=== PATIENT | male | born 1970 | race Asian ===

== ENCOUNTER 2018-03-01 19:46 | Inpatient (IN) | payer SELFPAY ==
--- NOTE | 2018-03-01 20:29 | EDPHY ---
H & P Stated Complaint: dizzy, CANO, and not eating Time Seen by Provider: 03/01/18 20:05 HPI/ROS: CHIEF COMPLAINT: Confusion, headache HISTORY OF PRESENT ILLNESS: 48-year-old male presents with confusion and headache. 6 weeks ago he began making errors at work. 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 He stopped working 6 weeks ago. Since then, he has continued to be confused and has had intermittent headaches. Associated with decreased oral intake. urinary frequency and episodic dizziness. Went to the crisis center and was placed on an M1 hold for grave disability. No SI/HI or h/o mental illness. REVIEW OF SYSTEMS: complete 10 point ROS negative except at noted in the HPI - Personal History Current Tetanus/Diphtheria Vaccine: Unsure Current Tetanus Diphtheria and Acellular Pertussis (TDAP): Unsure - Medical/Surgical History Hx Asthma: No Hx Chronic Respiratory Disease: No Hx Diabetes: No Hx Cardiac Disease: No Hx Renal Disease: No Hx Cirrhosis: No Hx Alcoholism: No Hx HIV/AIDS: No Hx Splenectomy or Spleen Trauma: No Other PMH: denies - Social History Smoking Status: Never smoked Alcohol Use: None Drug Use: None - Physical Exam Exam: General Appearance: Alert, pleasant, confused at times Eyes: Pupils equal and round, no conjunctival pallor or injection ENT, Mouth: Mucous membranes moist Neck: Normal inspection Respiratory: Lungs are clear to auscultation Cardiovascular: Regular tachycardia Gastrointestinal: Abdomen is soft and nontender Neurological: Alert, oriented x3, motor and sensory intact, normal gait Skin: Warm and dry, no rash Extremities: Nontender, no pedal edema Psychiatric: Mood and affect normal Constitutional: Initial Vital Signs Temperature (C) 36.8 C 03/01/18 19:55 Heart Rate 116 H 03/01/18 19:55 Respiratory Rate 16 03/01/18 19:55 Blood Pressure 150/110 H 03/01/18 19:55 O2 Sat (%) 95 03/01/18 19:55 O2 Delivery Mode Room Air Allergies/Adverse Reactions: No Known Allergies Allergy (Unverified 03/01/18 20:02) Medical Decision Making - Diagnostics EKG Interpretation: EKG interpreted by me reveals sinus tachycardia, rate 113, LVH, borderline T- wave changes in inferior leads. Interpretation: Abnormal EKG Imaging Results: Imaging Impressions Head CT 03/01/18 19:54 Impression: 1. Bilateral cerebral and right cerebellar masses with surrounding vasogenic edema causing 0.8 cm left to right midline shift and herniation as described. Primary consideration is metastatic disease, MRI head with contrast recommended for further evaluation. 2. No intracranial hemorrhage. These findings were discussed with Dr. Hong by telephone at 8:34 PM on 03/01/2018 Imaging: Discussed imaging studies w/ call center representative Radiologist ED Course/Re-evaluation: This patient presents with headache, confusion and dizziness. Initial vital signs reveal hypertension and tachycardia. Neurologic exam is normal except for confusion. The M1 hold was lifted by me after initial patient evaluation. CT scan of the brain reveals multiple brain masses with edema and left to right shunt. Results discussed with the patient. No prior known history of cancer. Dr. Montoya was consulted and will see the patient in the hospital. Suggests Decadron 6 mg IV Q 6hr. Decadron 6 mg IV given. MRI of the brain ordered. The patient has urinary frequency so a Cooper catheter was inserted prior to MRI. Has urinated x 3 in the past hr, ?SIADH. The hospitalist service was consulted for admission. CT scan of the chest abdomen pelvis ordered. Differential Diagnosis: Altered mental status including but not limited to hypoglycemia, infectious process, electrolyte abnormality, head injury, CVA, and intoxicants. - Data Points Laboratory Results: Laboratory Results 03/01/18 20:00 03/01/18 20:00 03/01/18 03/01/18 03/01/18 20:00 20:00 20:00 WBC 13.17 10^3/uL H 10^3/uL (3.80-9.50) RBC 5.85 10^6/uL 10^6/uL (4.40-6.38) Hgb 17.7 g/dL H g/dL (13.7-17.5) Hct 51.4 % H % (40.0-51.0) MCV 87.9 fL fL (81.5-99.8) MCH 30.3 pg pg (27.9-34.1) MCHC 34.4 g/dL g/dL (32.4-36.7) RDW 11.9 % % (11.5-15.2) Plt Count 472 10^3/uL H 10^3/uL (150-400) MPV 9.0 fL fL (8.7-11.7) Neut % (Auto) 79.6 % H % (39.3-74.2) Lymph % (Auto) 9.7 % L % (15.0-45.0) [place] % (Auto) 8.4 % % (4.5-13.0) Eos % (Auto) 1.4 % % (0.6-7.6) Baso % (Auto) 0.5 % % (0.3-1.7) Nucleat RBC Rel Count 0.0 % % (0.0-0.2) Absolute Neuts (auto) 10.49 10^3/uL H 10^3/uL (1.70-6.50) Absolute Lymphs (auto) 1.28 10^3/uL 10^3/uL (1.00-3.00) Absolute Monos (auto) 1.10 10^3/uL H 10^3/uL (0.30-0.80) Absolute Eos (auto) 0.19 10^3/uL 10^3/uL (0.03-0.40) Absolute Basos (auto) 0.06 10^3/uL 10^3/uL (0.02-0.10) Absolute Nucleated RBC 0.00 10^3/uL 10^3/uL (0-0.01) Immature Gran % 0.4 % % (0.0-1.1) Immature Gran # 0.05 10^3/uL 10^3/uL (0.00-0.10) Sodium 139 mEq/L mEq/L (135-145) Potassium 4.1 mEq/L mEq/L (3.3-5.0) Chloride 97 mEq/L mEq/L (97-110) Carbon Dioxide 29 mEq/l mEq/l (22-31) Anion Gap 13 mEq/L mEq/L (8-16) BUN 13 mg/dL mg/dL (7-23) Creatinine 0.9 mg/dL mg/dL (0.7-1.3) Estimated GFR > 60 Glucose 124 mg/dL H mg/dL (70-100) Calcium 10.0 mg/dL mg/dL (8.5-10.4) Total Bilirubin 1.0 mg/dL mg/dL (0.1-1.4) Conjugated Bilirubin 0.2 mg/dL mg/dL (0.0-0.5) Unconjugated Bilirubin 0.8 mg/dL mg/dL (0.0-1.1) AST 25 IU/L IU/L (17-59) ALT 44 IU/L IU/L (21-72) Alkaline Phosphatase 164 IU/L H IU/L (38-126) Total Protein 8.2 g/dL g/dL (6.3-8.2) Albumin 4.1 g/dL g/dL (3.5-5.0) Lipase 95 IU/L IU/L (23-300) TSH 3.260 uIU/mL uIU/mL (0.465-4.680) Urine Color PALE YELLOW Urine Appearance CLEAR Urine pH 6.0 (5.0-7.5) Ur Specific [place] 1.002 (1.002-1.030) Urine Protein NEGATIVE (NEGATIVE) Urine Ketones NEGATIVE (NEGATIVE) Urine Blood NEGATIVE (NEGATIVE) Urine Nitrate NEGATIVE (NEGATIVE) Urine Bilirubin NEGATIVE (NEGATIVE) Urine Urobilinogen NEGATIVE EU EU (0.2-1.0) Ur Leukocyte Esterase NEGATIVE (NEGATIVE) Urine Glucose NEGATIVE (NEGATIVE) Urine Opiates Screen NEGATIVE (NEGATIVE) Urine Barbiturates NEGATIVE (NEGATIVE) Ur Phencyclidine Scrn NEGATIVE (NEGATIVE) Ur Amphetamine Screen NEGATIVE (NEGATIVE) U Benzodiazepines Scrn NEGATIVE (NEGATIVE) Urine Cocaine Screen NEGATIVE (NEGATIVE) U Marijuana (THC) Screen NEGATIVE (NEGATIVE) Ethyl Alcohol < 10 mg/dL mg/dL (0-10) Medications Given: Discontinued Medications Dexamethasone (Decadron Injection) 6 mg IVP EDNOW ONE Stop: 03/01/18 20:50 Last Admin: 03/01/18 22:04 Dose: 6 mg Sodium Chloride (Ns) 1,000 mls @ 0 mls/hr IV ONCE ONE; Wide Open PRN Reason: Protocol Stop: 03/01/18 20:31 Last Admin: 03/01/18 22:04 Dose: 1,000 mls Departure - Departure Disposition: [facility] Acute Clinical Impression: Brain tumor Condition: Serious
[2018-03-01 20:30] LABS: PLATELET COUNT 472 10^3/uL (150-400)
[2018-03-01] MEDS ORDERED: NS 1,000 ML IV ONE (20:30)
[2018-03-01] MEDS ORDERED: DEXAMETHASONE 4 MG/ML VIAL IVP ONE (20:49)
[2018-03-01] MEDS ORDERED: IOPAMIDOL (ISOVUE-300) 100 ML BTL ONE (21:05)
[2018-03-01] MEDS ORDERED: GADOBUTROL 10 ML VIAL IVP ONE (21:14)
--- NOTE | 2018-03-01 22:43 | CPEKG ---
Test Reason : OPEN Blood Pressure : / mmHG Vent. Rate : 113 BPM Atrial Rate : 113 BPM P-R Int : 135 ms QRS Dur : 082 ms QT Int : 329 ms P-R-T Axes : 061 070 -18 degrees QTc Int : 451 ms Sinus tachycardia Consider left ventricular hypertrophy Borderline T abnormalities, inferior leads Confirmed by Khloe Hong ([id number]) on 03/01/2018 10:42:40 PM Referred By: Confirmed By:Khloe Hong
[2018-03-01] MEDS ORDERED: ONDANSETRON 4 MG/2 ML VIAL IVP PRN (22:57)
[2018-03-01] MEDS ORDERED: NS 1,000 ML IV SCH (23:00)
--- NOTE | 2018-03-02 01:49 | PDGENHP ---
History and Physical - Chief Complaint Headache and confusion - History of Present Illness Patient seen on 03/01/2018 shortly after arrival on the med/surg floor. Source-patient provides history and appears reliable. Patient's primary language is Turkish and speaks Greenlandic quite well. Lifestyle Coordinator video was offered and patient initially declined pending result of jay CT studies. EMR was reviewed and case discussed with accepting hospitalist. HPI-this is a very pleasant 48-year-old gentleman with a history of gout who presents emergency department today with complaints of 6 weeks of progressive confusion and headaches. Patient notes that over the last several weeks he has been losing weight. He denies any trauma or injuries preceding the onset of his symptoms. He does note that over the last 6 weeks he has been having increasing confusion, lightheadedness and occasional falls without any loss of consciousness or head injury. 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 He denies any numbness or tingling in upper or lower extremities. He denies any focal deficits. He has had declining appetite. He has had intermittent nausea vomiting over the last 3 weeks and complaints of increasing symptoms with oral intake of high acid juices or high sugar content foods. He denies any hematemesis. No diarrhea. Denies any abdominal pain. No fevers or chills. Patient denies any acute changes in his vision. History Information - Allergies/Home Medication List Allergies/Adverse Reactions: No Known Allergies Allergy (Unverified 03/01/18 20:02) I have personally reviewed and updated: family history, medical history, social history, surgical history - Past Medical History Additional medical history: Gout. chronic polyuria since childhood - Surgical History Reports: no pertinent surgical hx (Patient denies any surgery history) - Family History Additional family history: Father-history of pancreatic cancer . Patient denies any chronic medical issues in the family members including HTN, dm 2 - Social History Smoking Status: Never smoked Alcohol Use: None Drug Use: None Additional social history: Patient is currently renting a room in a home. Cor status-full. Review of Systems Review of Systems: ROS: 10pt was reviewed & negative except for what was stated in HPI & below Physical Exam Physical Exam: Selected Entries 03/01/18 19:55 Blood Pressure Automatic Method Heart Rate 116 H Respiratory 16 Rate O2 Sat (%) 95 Temperature (C) 36.8 C Blood Pressure 150/110 H Mean Arterial 123 H Pressure (MAP) O2 Delivery Room Air Mode Temperature Oral Source Temp Pulse Resp BP Pulse Ox 36.6 C 118 H 16 145/102 H 88 L 03/02/18 00:18 03/02/18 00:18 03/02/18 00:18 03/02/18 00:18 03/02/18 00:18 Constitutional: no apparent distress, not in pain, other (NAD. Pleasant adult gentleman is lying comfortably in bed. Patient in fairly good spirits. A little bit anxious.) Eyes: PERRL, anicteric sclera, EOMI, No scleral injection Ears, Nose, Mouth, Throat: moist mucous membranes, No poor dentition (Feelings noted) Cardiovascular: regular rate and rhythym, tachycardia, No no murmur, rub, or gallop, No edema Peripheral Pulses: 2+: dorsalis-pedis (R), dorsalis-pedis (L) Respiratory: no respiratory distress, no rales or rhonchi, clear to auscultation , No expiratory wheeze, No respiratory distress Gastrointestinal: normoactive bowel sounds, soft, non-tender abdomen, no palpable masses, No distension Genitourinary: no bladder tenderness, huston in urethra Skin: warm, normal color, no rashes or abrasions, No rash Musculoskeletal: full muscle strength, no muscle tenderness, normal joint ROM, No generalized weakness Neurologic: AAOx3, sensation intact bilaterally, CN II-XII Intact, No facial droop Psychiatric: interacting appropriately, not encephalopathic, thought process linear, anxious, No suicidal ideation, No poor insight, No poor judgement, No poor memory Lab Data & Imaging Review 03/01/18 20:00 03/01/18 20:00 WBC 13.17 10^3/uL (3.80-9.50) H 03/01/18 20:00 RBC 5.85 10^6/uL (4.40-6.38) 03/01/18 20:00 Hgb 17.7 g/dL (13.7-17.5) H 03/01/18 20:00 Hct 51.4 % (40.0-51.0) H 03/01/18 20:00 MCV 87.9 fL (81.5-99.8) 03/01/18 20:00 MCH 30.3 pg (27.9-34.1) 03/01/18 20:00 MCHC 34.4 g/dL (32.4-36.7) 03/01/18 20:00 RDW 11.9 % (11.5-15.2) 03/01/18 20:00 Plt Count 472 10^3/uL (150-400) H 03/01/18 20:00 MPV 9.0 fL (8.7-11.7) 03/01/18 20:00 Neut % (Auto) 79.6 % (39.3-74.2) H 03/01/18 20:00 Lymph % (Auto) 9.7 % (15.0-45.0) L 03/01/18 20:00 [place] % (Auto) 8.4 % (4.5-13.0) 03/01/18 20:00 Eos % (Auto) 1.4 % (0.6-7.6) 03/01/18 20:00 Baso % (Auto) 0.5 % (0.3-1.7) 03/01/18 20:00 Nucleat RBC Rel Count 0.0 % (0.0-0.2) 03/01/18 20:00 Absolute Neuts (auto) 10.49 10^3/uL (1.70-6.50) H 03/01/18 20:00 Absolute Lymphs (auto) 1.28 10^3/uL (1.00-3.00) 03/01/18 20:00 Absolute Monos (auto) 1.10 10^3/uL (0.30-0.80) H 03/01/18 20:00 Absolute Eos (auto) 0.19 10^3/uL (0.03-0.40) 03/01/18 20:00 Absolute Basos (auto) 0.06 10^3/uL (0.02-0.10) 03/01/18 20:00 Absolute Nucleated RBC 0.00 10^3/uL (0-0.01) 03/01/18 20:00 Immature Gran % 0.4 % (0.0-1.1) 03/01/18 20:00 Immature Gran # 0.05 10^3/uL (0.00-0.10) 03/01/18 20:00 Sodium 139 mEq/L (135-145) 03/01/18 20:00 Potassium 4.1 mEq/L (3.3-5.0) 03/01/18 20:00 Chloride 97 mEq/L (97-110) 03/01/18 20:00 Carbon Dioxide 29 mEq/l (22-31) 03/01/18 20:00 Anion Gap 13 mEq/L (8-16) 03/01/18 20:00 BUN 13 mg/dL (7-23) 03/01/18 20:00 Creatinine 0.9 mg/dL (0.7-1.3) 03/01/18 20:00 Estimated GFR > 60 03/01/18 20:00 Glucose 124 mg/dL (70-100) H 03/01/18 20:00 Calcium 10.0 mg/dL (8.5-10.4) 03/01/18 20:00 Total Bilirubin 1.0 mg/dL (0.1-1.4) 03/01/18 20:00 Conjugated Bilirubin 0.2 mg/dL (0.0-0.5) 03/01/18 20:00 Unconjugated Bilirubin 0.8 mg/dL (0.0-1.1) 03/01/18 20:00 AST 25 IU/L (17-59) 03/01/18 20:00 ALT 44 IU/L (21-72) 03/01/18 20:00 Alkaline Phosphatase 164 IU/L (38-126) H 03/01/18 20:00 Total Protein 8.2 g/dL (6.3-8.2) 03/01/18 20:00 Albumin 4.1 g/dL (3.5-5.0) 03/01/18 20:00 Lipase 95 IU/L (23-300) 03/01/18 20:00 TSH 3.260 uIU/mL (0.465-4.680) 03/01/18 20:00 Urine Color PALE YELLOW 03/01/18 20:00 Urine Appearance CLEAR 03/01/18 20:00 Urine pH 6.0 (5.0-7.5) 03/01/18 20:00 Ur Specific [place] 1.002 (1.002-1.030) 03/01/18 20:00 Urine Protein NEGATIVE (NEGATIVE) 03/01/18 20:00 Urine Ketones NEGATIVE (NEGATIVE) 03/01/18 20:00 Urine Blood NEGATIVE (NEGATIVE) 03/01/18 20:00 Urine Nitrate NEGATIVE (NEGATIVE) 03/01/18 20:00 Urine Bilirubin NEGATIVE (NEGATIVE) 03/01/18 20:00 Urine Urobilinogen NEGATIVE EU (0.2-1.0) 03/01/18 20:00 Ur Leukocyte Esterase NEGATIVE (NEGATIVE) 03/01/18 20:00 Urine Glucose NEGATIVE (NEGATIVE) 03/01/18 20:00 Urine Opiates Screen NEGATIVE (NEGATIVE) 03/01/18 20:00 Urine Barbiturates NEGATIVE (NEGATIVE) 03/01/18 20:00 Ur Phencyclidine Scrn NEGATIVE (NEGATIVE) 03/01/18 20:00 Ur Amphetamine Screen NEGATIVE (NEGATIVE) 03/01/18 20:00 U Benzodiazepines Scrn NEGATIVE (NEGATIVE) 03/01/18 20:00 Urine Cocaine Screen NEGATIVE (NEGATIVE) 03/01/18 20:00 U Marijuana (THC) Screen NEGATIVE (NEGATIVE) 03/01/18 20:00 Ethyl Alcohol < 10 mg/dL (0-10) 03/01/18 20:00 Imaging Review: CT Head Without Contrast History: Confusion, headache, dizziness over prior 2 weeks Comparison: None available. Technique: Axial unenhanced images were obtained from the vertex through the skull base. Dose reduction techniques were utilized. Findings: Large areas of white matter hypodensity compatible with vasogenic edema are seen bilaterally, the largest region is in the left parietal-occipital lobe with similar-appearing regions in the right frontoparietal, temporal, and occipital regions. 2.3 cm left occipital soft tissue density parenchymal mass is seen on coronal image 5-59 as well as 1.1 cm right temporal mass on image 3-50 in addition to a 1.0 cm right parietal-occipital mass on image 3- 73 and coronal 6-39. There is also similar parenchymal hypodensity seen in the cerebellum on the right best seen on image 3-33. There is mass effect on the left lateral ventricle causing approximately 0.8 cm of left right midline shift and mild transtentorial downward herniation. There is also asymmetric dilatation of the left temporal horn may be secondary to mass effect/ obstruction. No intracranial hemorrhage is identified. No extraaxial fluid collections are identified. Punctate basal ganglia calcifications are seen. No destructive calvarial fractures are identified. Calcification of distorted external ear articular cartilage is seen which may be secondary to repetitive trauma. Mucous retention cyst or polyp is seen in the left maxillary sinus otherwise, the visible paranasal sinuses and mastoid air cells are normally aerated. Impression: 1. Bilateral cerebral and right cerebellar masses with surrounding vasogenic edema causing 0.8 cm left to right midline shift and herniation as described. Primary consideration is metastatic disease, MRI head with contrast recommended for further evaluation. 2. No intracranial hemorrhage. These findings were discussed with Dr. Hong by telephone at 8:34 PM on 2017 EKG additional interpertation: sinus tachycardia 110s. LVH. t wave inversion II and nonspecific t wave changes III. no acute ST elevations. QTc 451. Assessment & Plan Assessment: Pleasant 48-year-old gentleman with history of gout who presents with 6 weeks of confusion, headaches and lightheadedness #Brain tumor (Acute) - patient with multiple tumors on CT head. MRI and jay CT are pending. Concern for metastatic disease most likely vs. primary brain tumor. Patient with edema and shift and was started on Decadron in the emergency department which will be continued. Neurosurgery was consulted will see the patient in the morning. Patient reports that he is already feeling a little less cloudy in his thinking. He denies any focal deficits. Lightheadedness has resolved at this time. Differential was discussed with the patient and likely metastatic disease. I did ask the patient if upon return to review the reports and findings of the CT imaging and MRI if I could bring in the all terrain vehicle racer Ipad and patient was amenable. #headache - improved. Continue Decadron as noted above. P.r.n. Medications for pain control. Will try to avoid sedatives on due to patient's reported confusion. # leukocytosis - likely reactive in setting of patient's acute diagnoses versus S less likely infectious. Jay CT head pending. Patient is afebrile. # polycythemia - likely secondary to dehydration. Patient reports significantly declined oral intake and hydration secondary to poor appetite. FEN - patient will be made NPO after midnight pending CT jay CT for possible biopsy. Electrolyte monitoring replacement if needed. Patient will be started on some gentle IV fluid hydration overnight. PPX - SCDs. Holding anticoagulation pending study reports for possible procedure. Cor status-full. Disposition-patient admitted to inpatient status on the medical floor. Given severity of his illness additional inpatient workup is required and anticipate greater than 2 midnight stay.
[2018-03-02] MEDS: DEXAMETHASONE 4 MG/ML VIAL IVP SCH ×5 (01:52→23:55)
[2018-03-02 05:00] LABS: PLATELET COUNT 457 10^3/uL (150-400)
--- NOTE | 2018-03-02 08:36 | GCON ---
NEUROSURGERY CONSULTATION CHIEF COMPLAINT: Confusion. HPI: The patient is a 48-year-old male patient who was originally from [facility]. 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 He presented to the emergency room with 6 weeks of progressive confusion and headaches. The patient also noted that he has been losing weight. He den ied any trauma or injuries that brought on the symptoms. He has also had some increasing confusion a nd lightheadedness with occasional falls, but denies any loss of consciousness or head injury. He wa s admitted for further workup after a CT of the head demonstrated several brain lesions. He has unde rgone further metastatic workup including CT of the chest, abdomen, and pelvis and MRI of the brain. He has been found to have a left lung mass concerning for a primary source of the patient's metastat ic disease. Neurosurgery was subsequently consulted given the brain lesions. On examination this morning, the patient is resting in bed. I offered video translation to assist wi th his evaluation today, but the patient states he understands Italian quite well and thinks that fariha etimes the translation devices make things more confusing and declines translation. Resting in the b ed, patient states he is feeling overall okay this morning. He denies any headaches, nausea, vomitin g, new numbness or tingling or weakness in his arms or legs. ALLERGIES: The patient has no known drug allergies. PAST MEDICAL HISTORY: Gout, polyuria since childhood. SURGICAL HISTORY: Patient denies any past surgical history. FAMILY HISTORY: Father from pancreatic cancer. The patient denies any chronic medical i ssues in his family. SOCIAL HISTORY: Patient is a nonsmoker. He does not drink or use drugs. He is currently renting a room. REVIEW OF SYSTEMS: Please see above mentioned in the HPI. Otherwise negative. PHYSICAL EXAMINATION: VITAL SIGNS: Blood pressure 118/88, heart rate is 135, respirations 16, O2 sa t is 89% on 2 L of oxygen. Temperature is 36.9 Celsius. GENERAL: Well-developed, well-nourished ct ziyad patient in no acute distress. HEAD: Normocephalic and atraumatic. NEUROLOGIC: Cranial nerves 2- 12 are grossly intact. Motor examination of the bilateral upper extremities is 5/5 for deltoid, tric eps, biceps, and hand instructional support specialist and also 5/5 for bilateral lower extremities including hip flexion, flexi on and extension in the knee and plantar and dorsiflexion. LABORATORY: White blood cells 13.56, hemoglobin 17.1, hematocrit 49.4. RDW is 11.9. Platelet count is 457. Sodium is 146. Potassium is 4.6. Chloride is 109. Carbon dioxide is 25. Anion gap is 12 . BUN is 12. Creatinine 0.8. GFR greater than 60, glucose 162, calcium 10.1. Urinalysis is negati ve for protein, ketones, blood, nitrate, bilirubin, urobilinogen, and leukocyte esterase. Urine gluc ose is pale yellow. Appearance is clear. PH is 6.0. Toxicology screen is negative. IMAGING: CT of the head without contrast: Bilateral cerebral and right cerebellar masses with surro unding vasogenic edema causing 0.8 cm [id number] midline shift and herniation as described. Prima ry consideration is metastatic disease. MRI head with contrast recommended for further evaluation. No intracranial hemorrhage. Brain MRI with and without contrast impression: Innumerable intracrania l enhancing lesions compatible with metastasis. No significant change in the [id number] midline s hift/herniation. Largest enhancing mass measures 2.5 cm in the left occipital lobe. Abdomen CT left upper lobe lung mass suggestive of primary lung carcinoma differentiation of post obstructive pneumo keon/atelectasis is radiographically difficult. 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 Retroperitoneal adenopathy compatible with metastatic disease. No hepatic lesions. Pelvis : Enhancing left acetabular destructive mass compatible with metastatic disease. Non expansile gordo gn-appearing cyst osseous lesion in the intertrochanteric region of the left femur more suggestive of a benign bone cyst. IMPRESSION: This is a 48-year-old male patient with several brain lesions, a lung mass, and evidence of metastatic disease. PLAN: I have seen and examined the patient this morning. He is neurologically intact. I discussed with him that he is likely feeling better now that he has been placed on steroids thus is reducing so me of the swelling in his brain. I sat down and had a long conversation with the patient regarding t he findings of his MRI of the brain, and we reviewed the images together. I also reviewed with him t hat he does have lesions in his lymph nodes and he has evidence of metastatic disease. We discussed what this meant. I discussed with him that we will need to obtain some tissue to find out what type of tumor or cancer he has and that will guide his treatment options and prognosis. The patient expre ssed agreement and understanding of this. We also discussed that at this time, we would not plan any brain surgery for him given the large number of lesions there and also because the lung is a more ac cessible source. I discussed the patient with Dr. Sarah Montoya as well, and she will be in to meet w ith the patient later today. Neurosurgery will continue to follow along with this patient. Please c ontact the neurosurgery service for any additional questions or concerns. /[id number]
--- NOTE | 2018-03-02 09:50 | ASMTCMCOM ---
CM Note CM Note Notes: CM reviewed Pt's chart for D/C planning. Pt is a 48 y/o male who presented to the ED with c/o 6 weeks of confusion, lightheadedness, falls and headaches. Last few weeks losing weight. Intermittent nausea and vommiting last 3 weeks. Pt diagnosed with multiple tumors on head CT. Mass seen on lung and lesions in lymph nodes. Metastatic disease most likely. He is experiencing some symptom relief porobably due to steroids being taken now that he is here. Pt 's primary language is Malagasy; he speaks Maltese fluently, but agreed to an interpretor when medical findings presented. CM will follow. D/C Plan: TBD Date Signed: 03/02/2018 09:49 AM Electronically Signed By:Casi Arteaga
[2018-03-02] MEDS ORDERED: NALOXONE HCL 0.4 MG/ML INJ IVP PRN (15:00)
[2018-03-02] MEDS ORDERED: fentaNYL 100 MCG/2 ML INJ IVP PRN (15:00)
[2018-03-02] MEDS ORDERED: NS 1,000 ML IV SCH (15:00)
[2018-03-02] MEDS ORDERED: FLUMAZENIL 0.5 MG/5 ML MDV IVP PRN (15:00)
[2018-03-02] MEDS ORDERED: MIDAZOLAM 2 MG/2 ML VIAL IVP PRN (15:00)
--- NOTE | 2018-03-02 15:33 | HOSPPROG ---
Hospitalist Progress Note Assessment/Plan: #Metastatic cancer #Brain Mets, no indication for brain surgery #EVELIA mass #Acute Encephalopathy, stable #Headache, improving #Leukocytosis #Tachycardia Imaging reviewed Primary unclear CT guided biopsy of left Acetabulum per IR will consult Onc OK for Regular diet once procedure done Subjective: still confused. no CANO. No SOB. thirsty Objective: Vital Signs Temp Pulse Resp BP Pulse Ox 37.3 C 131 H 18 132/93 H 90 L 03/02/18 11:23 03/02/18 11:23 03/02/18 11:23 03/02/18 11:23 03/02/18 11:23 Laboratory Results 03/02/18 04:28 03/02/18 04:28 03/01/18 03/02/18 03/03/18 05:59 05:59 05:59 Intake Total 1500 342 Output Total 2600 725 Balance -1100 -383 - Physical Exam Constitutional: no apparent distress Eyes: PERRL Ears, Nose, Mouth, Throat: moist mucous membranes, hearing normal Cardiovascular: regular rate and rhythym Respiratory: no respiratory distress, no rales or rhonchi, clear to auscultation Gastrointestinal: normoactive bowel sounds, soft, non-tender abdomen Skin: warm Neurologic: AAOx3 Psychiatric: interacting appropriately, not anxious Lymph, Heme, Immunologic: No petechiae ICD10 Worksheet Patient Problems: Problems Problem Status Onset Brain tumor Acute
[2018-03-02 15:41] LABS: INR 1.11 (0.83-1.16); PROTIME(PATIENT) 14.5 SEC (12.0-15.0)
--- NOTE | 2018-03-02 15:41 | PDMN ---
Medical Necessity Medical necessity: Pt meets inpt criteria per MD order and Neurology GRG. 48 y/ o presents w/ongoing headaches, confusion and light headedness w/new diagnosis acute brain tumor, CT head shows multiple tumors, edema, and shift, also chest CT reveals L lung mass as well as mediastianl, retroperitoneal abd lymph node involvement. Leukocytosis, polycythemia, tachycardia w/HR 130's. Neurosurg consult, anticipate >2MN due to severity of illness and further workup required.
[2018-03-02] MEDS ORDERED: MIDAZOLAM 2 MG/2 ML VIAL ONE (16:14)
[2018-03-02] MEDS ORDERED: fentaNYL 100 MCG/2 ML INJ ONE (16:14)
--- NOTE | 2018-03-02 17:18 | PDRADPN ---
Radiology Procedure Note Date of Procedure: 03/02/18 Radiologist: Richard Loco Anesthesia: IV Sedation Pre-op Diagnosis: left acetabular mass Post-op Diagnosis: same Procedure: CT-guided biopsy Inf/Abcess present in the surg proc area at time of surgery?: No
--- NOTE | 2018-03-02 17:18 | PDPROPOC ---
Sedation Plan of Care ASA Classification: ASA 2 Mallampati Score: Class 2 Mallampati Reference Image:
[2018-03-02] MEDS: ACETAMINOPHEN 325 MG TAB PO PRN (19:42)
[2018-03-03 05:59] LABS: PLATELET COUNT 436 10^3/uL (150-400)
[2018-03-03] MEDS: DEXAMETHASONE 4 MG/ML VIAL IVP SCH ×5 (06:02→18:15)
[2018-03-03] MEDS: ACETAMINOPHEN 325 MG TAB PO PRN ×2 (06:04→10:28)
[2018-03-03] MEDS ORDERED: DEXAMETHASONE 4 MG/ML VIAL IVP SCH (13:11)
[2018-03-03] MEDS ORDERED: D50W 25 GM/50 ML VIAL IVP PRN (13:15)
--- NOTE | 2018-03-03 13:15 | HOSPPROG ---
Hospitalist Progress Note Assessment/Plan: #Metastatic cancer #Brain Mets, no indication for brain surgery -On Dexamethasone -Will decrease dose today and taper #EVELIA mass #Left Acetabular Mass #Acute Encephalopathy, improving #Headache, improving #Leukocytosis #Tachycardia #steroid induced hyperglycemia Plan: mentation is better Onc will see today will decrease Dexamethasone today start ISS, check A1C PT/OT Subjective: CANO is better. congnition is improving. denies pain Objective: Vital Signs Temp Pulse Resp BP Pulse Ox 36.5 C 119 H 14 111/87 H 88 L 03/03/18 12:00 03/03/18 12:00 03/03/18 12:00 03/03/18 12:00 03/03/18 12:00 Laboratory Results 03/03/18 04:45 03/03/18 04:45 03/02/18 03/03/18 03/04/18 05:59 05:59 05:59 Intake Total 1500 3342 Output Total 2600 3795 1100 Balance -1100 -453 -1100 PT 14.5 SEC (12.0-15.0) 03/02/18 15:20 INR 1.11 (0.83-1.16) 03/02/18 15:20 - Physical Exam Constitutional: no apparent distress Eyes: PERRL Ears, Nose, Mouth, Throat: moist mucous membranes, hearing normal Cardiovascular: regular rate and rhythym Respiratory: no respiratory distress, no rales or rhonchi, clear to auscultation Gastrointestinal: normoactive bowel sounds, soft, non-tender abdomen Skin: warm Neurologic: AAOx3 Psychiatric: interacting appropriately, not anxious, encephalopathic (somewhat confused) Lymph, Heme, Immunologic: No petechiae ICD10 Worksheet Patient Problems: Problems Problem Status Onset Brain tumor Acute
--- NOTE | 2018-03-03 15:07 | GCON ---
DATE OF CONSULTATION: 03/03/2018 REASON FOR CONSULTATION: Metastatic malignancy. HISTORY OF PRESENT ILLNESS: Patient is a pleasant 48-year-old gentleman who presented to the [facility] with chief complaint of headache and confusion. 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 He noted some short-term memory difficulties. 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 He felt generally "clumsy." When his symp toms began to worsen, he presented to the emergency department. A CT of the head revealed multiple s uspicious lesions. A subsequent MRI of the brain revealed innumerable intracranial enhancing lesions compatible with metastasis. There was mild left to right midline shift. The patient was seen by Neurosurgery. He was started on IV steroid treatment with improvement in his symptoms. He underwent a staging CT chest, abdomen, which revealed a left upper lobe mass extending from the hilum measuring 3.7 cm in greatest dimension with surrounding atelectasis. Several other m asses were seen in the left upper lobe, largest measuring 1.8 cm. The heart size was normal. There was mediastinal adenopathy. The patient was noted to have a cluster of enlarged nodes just superior to the stomach. The largest measuring 1.7 cm in greatest dimension. Multiple retroperitoneal nodes were noted as well. The patient was noted to have a 5.3 cm enhancing mass in the left acetabulum wit h destruction of the cortex. The patient denies left hip pain. He denies odynophagia or dysphagia. He denies epigastric pain. H e does report a poor appetite with an unspecified amount of weight loss. Throughout his hospital stay, he has had intermittent sinus tachycardia and is currently on a monitor . The patient underwent a CT-guided biopsy of his acetabular mass yesterday. Pathology is currently pe nding. PAST MEDICAL HISTORY: 1. Gout. 2. History of chronic polyuria since childhood. PAST SURGICAL HISTORY: None. FAMILY HISTORY: Patient reports his father of pancreatic cancer in his 60s. He denies any othe r known family history of malignancy. SOCIAL HISTORY: The patient is originally from [place]. He has lived in the [place] since 1999. 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 He is a lifelong nonsmoker. He does not use alcohol. He is singl e. REVIEW OF SYSTEMS: As outlined above. PHYSICAL EXAM: GENERAL: The patient is resting comfortably in bed. He is in no acute distress. HE ENT: Pupils are equal. Sclerae nonicteric. No palpable cervical or supraclavicular adenopathy. HE ART: Regular without murmur. LUNGS: Mild bibasilar crackles but are otherwise clear. No wheezes, rhonchi. No flank tenderness. ABDOMEN: Soft, nontender, nondistended. There is specifically no ep igastric tenderness or mass. EXTREMITIES: No extremity swelling or edema. SKIN: No visible skin r dimitri. PSYCH: Patient is alert, oriented, and appropriate. His gait appears normal. His speech is f luent. IMAGING STUDIES: As outlined above. LABORATORY STUDIES: Sodium 146, potassium 4.1, chloride 112, bicarb 22, BUN 24, creatinine 0.8, calc ium 9.2. White count 24.8, hemoglobin 15.1, hematocrit 44.4, platelet count is 436,000. IMPRESSION: 1. Metastatic malignancy. 2. Multiple intracranial brain metastasis. 3. History of pancreatic cancer in patient's father. Patient is a pleasant 48-year-old gentleman who presents to the hospital with evidence of a metastati c malignancy. He has undergone a CT-guided biopsy of a left acetabular mass, and the pathology is cu rrently pending. I discussed his imaging findings with him in detail. I shared the concern for metastatic malignancy. In this patient with a family history of pancreatic cancer, who is a nonsmoker and who has regional l ymph nodes in the epigastric area, I suspect the patient may have an occult gastric cancer. The kathya ent does not have any upper GI symptoms currently, but I certainly believe he would benefit from even tual upper endoscopy if his biopsy confirms an adenocarcinoma. This could be done early next week wh ile he is in the hospital. He has persistent tachycardia. He has no clear pericardial effusion on his CT. However, I think yojana luation with an echocardiogram is warranted, and I have ordered this. He is doing better from a neurologic standpoint since being started on IV dexamethasone, which will b e continued. Once his diagnosis is known, if the biopsy confirms solid tumor, I would favor initial treatment with palliative whole-brain radiation therapy, which could be initiated during this hospital stay. The patient had multiple questions regarding his prognosis, which are somewhat difficult to answer gi petty the lack of diagnosis currently. I did indicate to him that the finding of diffuse brain metasta sis generally carries a poor prognosis and that in general, a malignancy with diffuse brain metastasi s would not be considered curable. Our service will continue to follow him and will plan on meeting with him again to discuss further st eps and treatment options once his pathology has been resulted. The care plan was discussed with nursing. The patient's questions were answered. Total time for today's visit was approximately 65 minutes of which greater than 50% was spent in coun seling and care coordination. /[id number]/MODL
[2018-03-03] MEDS ORDERED: BISACODYL 10 MG SUPP PR PRN (15:56)
[2018-03-03] MEDS ORDERED: LACTULOSE 20 GM/30 ML UDCUP PO PRN (15:56)
[2018-03-03] MEDS ORDERED: MAGNESIUM HYDROXIDE 30 ML UDCUP PO PRN (15:56)
[2018-03-03] MEDS ORDERED: POLYETHYLENE GLYCOL 3350 17 GM PKT PO PRN (15:56)
[2018-03-03] MEDS: INSULIN LISPRO 100 UNIT/ML SC SCH (18:15)
[2018-03-03] MEDS: SENNOSIDES/DOCUSATE SODIUM TAB PO SCH (21:23)
[2018-03-04] MEDS: DEXAMETHASONE 4 MG/ML VIAL IVP SCH ×4 (00:22→22:27)
[2018-03-04] MEDS: SENNOSIDES/DOCUSATE SODIUM TAB PO SCH ×2 (08:50→20:25)
[2018-03-04] MEDS: INSULIN LISPRO 100 UNIT/ML SC SCH ×3 (08:51→17:22)
--- NOTE | 2018-03-04 09:56 | ASMTLACE ---
LACE Length of stay for Answers: 2 days current admission Acuity / Level of Answers: Yes Care: Did the patient have an inpatient admission? Comorbidities - select Answers: Any tumor (including all that apply lymphoma or leukemia) # of Emergency department Answers: 1-2 visits in the last 6 months Score: 8 Date Signed: 03/04/2018 09:56 AM Electronically Signed By:Carmelita Adames RN
--- NOTE | 2018-03-04 11:05 | HOSPPROG ---
Hospitalist Progress Note Assessment/Plan: #Metastatic cancer #Brain Mets, edema, headache -no indication for brain surgery -On Dexamethasone -further taper today -CANO and cognition are improving #EVELIA mass #Left Acetabular Mass #Acute Encephalopathy, improving #Leukocytosis, steroid induced #Tachycardia appears to have resolved today -TTE is pending for evaluation for pericardial effusion -on Lovenox proph -If tachycardia persists, may need to obtain CTA of the chest r/o P.E. #Hypoxemia, likely due to EVELIA mass. no e/o infection. not symptomatic this morning. on 2L o2. no cough. afebrile. no cp #steroid induced hyperglycemia #steroid induce insomnia Plan: Await Echo If tachycardia persists, consider CTA chest cont Lovenox Decrease Steroids today Await Cytology Start Melatonin Onc is following ISS, await A1C PT/OT Cont inpatient Subjective: no cp or sob. feels "good". confusion is better. still with CANO but better. Having a hard time sleeping Objective: Vital Signs Temp Pulse Resp BP Pulse Ox 36.4 C 100 16 114/85 H 97 03/04/18 07:53 03/04/18 07:53 03/04/18 07:53 03/04/18 07:53 03/04/18 07:53 Laboratory Results 03/03/18 04:45 03/03/18 04:45 03/03/18 03/04/18 03/05/18 05:59 05:59 05:59 Intake Total 3342 7300 500 Output Total 3795 6575 1000 Balance -453 725 -500 PT 14.5 SEC (12.0-15.0) 03/02/18 15:20 INR 1.11 (0.83-1.16) 03/02/18 15:20 - Physical Exam Constitutional: no apparent distress Eyes: PERRL Ears, Nose, Mouth, Throat: moist mucous membranes, hearing normal Cardiovascular: regular rate and rhythym Respiratory: no respiratory distress, no rales or rhonchi Gastrointestinal: normoactive bowel sounds, soft, non-tender abdomen Skin: warm Neurologic: AAOx3 Psychiatric: interacting appropriately, not anxious, not encephalopathic ICD10 Worksheet Patient Problems: Problems Problem Status Onset Brain tumor Acute
[2018-03-04] MEDS: ENOXAPARIN 40 MG/0.4 ML SYR SC SCH (12:41)
--- NOTE | 2018-03-04 14:46 | ECHO ---
[email or web address] [place] [id number] Main: [phone] Fax: Transthoracic Echocardiogram Name: MICHAEL METZGER MR#: [id number] Study Date: 03/04/2018 Study Time: 10:45 AM Date of : 1970 Age: 48 year(s) Height: 160 cm (63 in.) Weight: 61.24 kg (135 lb.) BSA: 1.64 m2 Gender: Male Examination: Limited Echo Indication: New Metastatic malignancy; eval for pericardial effusion and LVEF Image Quality: Adequate Contrast: Requested by: Karmen Kendall BP: 115 mmHg/85 mmHg Heart Rate: Rhythm: Indication: New Metastatic malignancy; eval for pericardial effusion and LVEF Procedure Staff Rod Buster: Inga Dhillon [facility] Reading Physician: Keshav Quijano MD Requesting Provider: Conclusions: Normal size left ventricle. No LV hypertrophy. Normal global systolic LV function. EF is 69 %. No regional wall motion abnormality. Normal RV function. No pericardial effusion. Measurements: Chambers Valvular Assessment AV/MV Valvular Assessment TV/PV Normal Normal Normal Name Value Range Name Value Range Name Value Range IVSd (2D): 0.9 cm (0.6 cm-1.1 cm) LVDd (2D): 4.1 cm (4.2 cm-5.9 cm) LVDs (2D): 2.2 cm (2.1 cm-4 cm) LVPWd (2D): 0.7 cm (0.6 cm-1 cm) LVEF (BP): 69 % (>=55 %) Continued Measurements: Findings: Left Ventricle: Normal size left ventricle. No LV hypertrophy. Normal global systolic LV function. EF is 69 %. No regional wall motion abnormality. Right Ventricle: Patient: MICHAEL METZGER Study Date: 03/04/2018 Page 1 of 2 10:45 AM Normal RV function. Pericardium: No pericardial effusion. (No Signature Object) Patient: MICHAEL METZGER Study Date: 03/04/2018 Page 2 of 2 10:45 AM [id number]
[2018-03-04] MEDS: MELATONIN 3 MG TAB PO SCH (20:27)
[2018-03-04] MEDS: HYDROCODONE/APAP 5/325 TAB PO PRN (20:40)
[2018-03-05 05:20] LABS: PLATELET COUNT 347 10^3/uL (150-400)
[2018-03-05] MEDS: DEXAMETHASONE 4 MG/ML VIAL IVP SCH ×3 (06:37→21:45)
[2018-03-05] MEDS: INSULIN LISPRO 100 UNIT/ML SC SCH ×3 (10:16→18:12)
[2018-03-05] MEDS: ENOXAPARIN 40 MG/0.4 ML SYR SC SCH (10:17)
--- NOTE | 2018-03-05 10:22 | HOSPPROG ---
Hospitalist Progress Note Assessment/Plan: #Metastatic lung cancer with brain mets - no indication for brain surgery. Headache and cognition improving. -Cont Dexamethasone, tapering -per onc notes, may be candidate for whole brain radiation while inpt. Discussed with Dr. Sim. 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 No e/o infection. #Tachycardia - improving, no hypoxemia or pleuritic symptoms -TTE neg for pericardial effusion -consider CTA if not resolving #Hypoxemia, likely due to EVELIA mass. no e/o infection, asymptomatic, seems resolved today -sats >90% on room air #Hyperglycemia - possibly steroid induced, bg's 200's-300's -check a1c -add basal insulin, lantus 10 u hs -cont SSI #steroid induced insomnia #dvt pplx - lovenox Full code Dispo - cont inpt, likely d/c tomorrow once oncology plans solidified. pt wants to return to [facility]. Subjective: Pt doing better. Headache improved. Still feels a little fuzzy in the head. No fevers/chills. Denies CP, SOB or cough. No pleuritic symptoms. Objective: Vital Signs Temp Pulse Resp BP Pulse Ox 36.6 C 93 15 119/92 H 92 03/05/18 07:34 03/05/18 07:34 03/05/18 07:34 03/05/18 07:34 03/05/18 07:34 Laboratory Results 03/05/18 04:24 03/05/18 04:24 03/04/18 03/05/18 03/06/18 05:59 05:59 05:59 Intake Total 7300 6500 1580 Output Total 6575 5700 1200 Balance 725 800 380 PT 14.5 SEC (12.0-15.0) 03/02/18 15:20 INR 1.11 (0.83-1.16) 03/02/18 15:20 - Physical Exam Constitutional: no apparent distress Eyes: PERRL Ears, Nose, Mouth, Throat: moist mucous membranes Cardiovascular: regular rate and rhythym, no murmur, rub, or gallop Respiratory: no respiratory distress, clear to auscultation Gastrointestinal: normoactive bowel sounds, soft, non-tender abdomen Skin: warm Musculoskeletal: full muscle strength Neurologic: AAOx3 Psychiatric: interacting appropriately ICD10 Worksheet Patient Problems: Problems Problem Status Onset Brain tumor Acute
[2018-03-05] MEDS: SENNOSIDES/DOCUSATE SODIUM TAB PO SCH ×2 (10:23→22:45)
--- NOTE | 2018-03-05 15:29 | ASMTCMCOM ---
CM Note CM Note Notes: Patient seen in rounds this am. Pathology still pending. 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 Call to rn employee health to request help. Patient is anxious to discharge to home so he can travel to [facility] and be with family. We will need to compile his records for discharge. No needs at this time for [facility]. Plan: To dc home independently when medically cleared for discharge. Date Signed: 03/05/2018 03:29 PM Electronically Signed By:Carmelita Adames RN
--- NOTE | 2018-03-05 18:34 | SOAPPROG ---
SOAP Progress Note Assessment/Plan: Assessment/Plan: Patient is a 48-year-old male with recently diagnosed metastatic lung carcinoma after presenting with symptomatic intracerebral metastasis for which oncology was consulted regarding free future recommendations. Problem #1 - Metastatic adenocarcinoma, pulmonary origin Malignancy is consistent with adenocarcinoma CK 7 and TTF-1 positive consistent with a lung primary. Given that the patient is is a lifetime non-smoker there is a high probability that this has an actionable mutation and thus he does not require whole brain radiotherapy but can start with TKI therapy such as osimertinib which has good CLINIC MD ASSOCIATE penetration. This would likely have a large impact on his quality of life given the severe decrements of same with whole brain radiation. Currently patient's CLINIC MD ASSOCIATE symptoms are well controlled on dexamethasone, recommend continuing this. We will work on having the patient get by [employer] peripheral blood testing for mutations. Problem #2-metastatic lung carcinoma to the brain -symptomatic Patient presented with symptomatic CLINIC MD ASSOCIATE involvement found to have innumerable CLINIC MD ASSOCIATE intraparenchymal metastasis. Patient is currently asymptomatic and completely neurologically intact intact on dexamethasone. Will treat as above. Continue dexamethasone in the meantime. Dhiraj Sim 03/05/18 18:29 03/05/18 18:39 Subjective: Patient reports feeling well he denies any fevers chills or drenching night sweats he denies any focal weakness difficulties with thinking or ambulation. He denies any paresthesias. Objective: Vital Signs Temp Pulse Resp BP Pulse Ox 36.7 C 115 H 15 120/84 H 92 03/05/18 16:00 03/05/18 16:00 03/05/18 16:00 03/05/18 16:00 03/05/18 16:00 Laboratory Results 03/05/18 04:24 03/05/18 04:24 03/04/18 03/05/18 03/06/18 05:59 05:59 05:59 Intake Total 7300 6500 3580 Output Total 6575 5700 3350 Balance 725 800 230 PT 14.5 SEC (12.0-15.0) 03/02/18 15:20 INR 1.11 (0.83-1.16) 03/02/18 15:20 Physical examination: General: No acute distress appearing male who appears younger than stated age nontoxic appearing HEENT: Pupils equal round reactive to light no scleral icterus or conjunctival pallor is appreciated oral mucosa is moist on the evidence of oral pharyngeal lesions Neck: Supple without evidence of adenopathy Cardiovascular: Regular rate and rhythm without rubs thrills gallops or murmur Chest: Clear to auscultation percussion bilateral posterior lungs Extremities: Warm well perfused 2+ dorsalis pedis and radial pulses bilaterally no lower extremity edema Neurologic: Cranial nerves II through XII are intact 5 out of 5 upper and lower extremity strength bilaterally normal mentation and normal gaitn ICD10 Worksheet Patient Problems: Problems Problem Status Onset Brain tumor Acute
[2018-03-05] MEDS: MELATONIN 3 MG TAB PO SCH (21:45)
[2018-03-05] MEDS: INSULIN GLARGINE 100 UNITS/ML UNIT SC SCH (21:45)
[2018-03-05] MEDS: HYDROCODONE/APAP 5/325 TAB PO PRN (22:47)
[2018-03-06] MEDS: DEXAMETHASONE 4 MG/ML VIAL IVP SCH ×2 (04:51→20:51)
--- NOTE | 2018-03-06 09:29 | HOSPPROG ---
Hospitalist Progress Note Assessment/Plan: #Metastatic lung adenocarcinoma: with brain mets. Cont dex -poor prognosis if not treated. Pt want to return to [facility] with family though Oncology rec stabilization prior #AHRF: resolved. From lung mass #Leukocytosis: steroids, afebrile #Acute encephalopathy: improved, from brain mets #Steroid-induced hyperglycemia: SSI #Tachycardia: echo without pericardial effusion. Resolved #Diet: regular #DVt ppx: Lovenox #Disp: cont inpatient admission for IV steroids. Will DC in morning with friend Subjective: thirsty all the time Objective: Vital Signs Temp Pulse Resp BP Pulse Ox 36.4 C 80 14 123/101 H 92 03/06/18 07:20 03/06/18 07:20 03/06/18 07:20 03/06/18 07:20 03/06/18 07:20 Laboratory Results 03/05/18 04:24 03/05/18 04:24 03/05/18 03/06/18 03/07/18 05:59 05:59 05:59 Intake Total 6500 5880 Output Total 5700 6650 850 Balance 800 -770 -850 PT 14.5 SEC (12.0-15.0) 03/02/18 15:20 INR 1.11 (0.83-1.16) 03/02/18 15:20 - Time Spent With Patient Time Spent with Patient: greater than 35 minutes Time Spent with Patient: Greater than 35 minutes spent on this patients care, greater than 50% of time spent counseling, educating, and coordinating care regarding the above mentioned plan. - Physical Exam Constitutional: no apparent distress Eyes: PERRL Ears, Nose, Mouth, Throat: moist mucous membranes Cardiovascular: regular rate and rhythym Respiratory: no respiratory distress Gastrointestinal: normoactive bowel sounds Genitourinary: no bladder fullness Skin: warm Musculoskeletal: full muscle strength Neurologic: AAOx3, CN II-XII Intact Psychiatric: interacting appropriately ICD10 Worksheet Patient Problems: Problems Problem Status Onset Brain tumor Acute
--- NOTE | 2018-03-06 09:46 | ASMTCMCOM ---
CM Note CM Note Notes: Patient discharge planning continues. He is planning on flying to [place] when he gets discharged and has a Mauritian speaking friend to accompany him. He will need a copy of his medical records as well as CD images from testing. No current needs identified from CM perspective. CM to follow. Plan: To dc indenpendently with community support. Date Signed: 03/06/2018 09:46 AM Electronically Signed By:Carmelita Adames RN
[2018-03-06] MEDS: ENOXAPARIN 40 MG/0.4 ML SYR SC SCH (10:00)
[2018-03-06] MEDS: INSULIN LISPRO 100 UNIT/ML SC SCH ×3 (10:05→17:28)
[2018-03-06] MEDS: SENNOSIDES/DOCUSATE SODIUM TAB PO SCH ×2 (10:05→21:16)
--- NOTE | 2018-03-06 13:24 | ASMTCMCOM ---
CM Note CM Note Notes: Patient seen during interdisciplinary rounds and plan of care reviewed. He will remain on IV steroids today but tapering dose and be switched to oral steroids tomorrow with likely discharge. Records being compiled as he intends to travel home to [facility] and seek treatment there. No other needs identified. Plan: Dc independently. Date Signed: 03/06/2018 01:23 PM Electronically Signed By:Carmelita Adames RN
--- NOTE | 2018-03-06 16:34 | SOAPPROG ---
SOAP Progress Note Assessment/Plan: Assessment/Plan: Patient is a 48-year-old male with recently diagnosed metastatic lung carcinoma after presenting with symptomatic intracerebral metastasis for which oncology was consulted regarding free future recommendations. Problem #1 - Metastatic adenocarcinoma, pulmonary origin Malignancy is consistent with adenocarcinoma CK 7 and TTF-1 positive consistent with a lung primary. Given that the patient is is a lifetime non-smoker there is a high probability that this has an actionable mutation and thus he does not require whole brain radiotherapy but can start with TKI therapy such as osimertinib which has good PHOTOENGRAVING HELPER penetration. This would likely have a large impact on his quality of life given the severe decrements of same with whole brain radiation. Currently patient's PHOTOENGRAVING HELPER symptoms are well controlled on dexamethasone -discussed prognosis of cancer both treated and untreated -discussed plan, which would include sending tumor for ROS1, EGFR, ALK and BRAF. Results should be available next week. If no actionable mutations, would likely start with carboplatin/pemetrexed and pembrolizumab. Would like to avoid WBRT. If actionable mutation would start with targeted therapy. -He has discussed desire to return to [place], which I warned was risky but understand that's where his family is. 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 Patient is currently asymptomatic and completely neurologically intact intact on dexamethasone. Will treat as above. -Continue dexamethasone 4mg BID in the meantime. Dhiraj Sim Subjective: Patient reports feeling well he has no new complaints. He has increased thirst and urination on the dexamethasone. Otherwise he denies fevers chills or drenching night sweats he denies any new PHOTOENGRAVING HELPER symptoms. He denies any bleeding Objective: Vital Signs Temp Pulse Resp BP Pulse Ox 36.4 C 125 H 14 127/101 H 91 L 03/06/18 16:00 03/06/18 16:00 03/06/18 16:00 03/06/18 16:00 03/06/18 16:00 Laboratory Results 03/05/18 04:24 03/05/18 04:24 03/05/18 03/06/18 03/07/18 05:59 05:59 05:59 Intake Total 6500 5880 Output Total 5700 6650 1450 Balance 800 -770 -1450 PT 14.5 SEC (12.0-15.0) 03/02/18 15:20 INR 1.11 (0.83-1.16) 03/02/18 15:20 Physical examination: General: No acute distress appearing male who appears younger than stated age nontoxic appearing HEENT: Pupils equal round reactive to light no scleral icterus or conjunctival pallor is appreciated oral mucosa is moist on the evidence of oral pharyngeal lesions Neck: Supple without evidence of adenopathy Cardiovascular: Regular rate and rhythm without rubs thrills gallops or murmur Chest: Clear to auscultation percussion bilateral posterior lungs Extremities: Warm well perfused 2+ dorsalis pedis and radial pulses bilaterally no lower extremity edema Neurologic: Cranial nerves II through XII are intact, normal gait, high frequency tremor - Time Spent With Patient Time Spent With Patient: 60 mins ICD10 Worksheet Patient Problems: Problems Problem Status Onset Brain tumor Acute
[2018-03-06] MEDS: INSULIN GLARGINE 100 UNITS/ML UNIT SC SCH (20:51)
[2018-03-06] MEDS: HYDROCODONE/APAP 5/325 TAB PO PRN (20:52)
[2018-03-06] MEDS: MELATONIN 3 MG TAB PO SCH (20:52)
[2018-03-07] MEDS ORDERED: traZODone 50 MG TAB PO PRN (00:23)
[2018-03-07] MEDS ORDERED: LORazepam 0.5 MG TAB PO ONE (05:31)
[2018-03-07 08:08] VITALS: BP 135/92
[2018-03-07] MEDS: INSULIN LISPRO 100 UNIT/ML SC SCH ×2 (08:24→12:32)
[2018-03-07] MEDS: ENOXAPARIN 40 MG/0.4 ML SYR SC SCH (08:25)
[2018-03-07] MEDS: DEXAMETHASONE 4 MG/ML VIAL IVP SCH (08:25)
[2018-03-07] MEDS: SENNOSIDES/DOCUSATE SODIUM TAB PO SCH (08:26)
--- NOTE | 2018-03-07 12:59 | ASDISCHSUM ---
Discharge Information Plan Status:Home with No Needs Medically Cleared to Leave:03/07/2018 Discharge Date:03/07/2018 CM D/C Disposition:Home, Routine, Self-Care ADT D/C Disposition:Home, Routine, Self-Care Projected Discharge Date:03/07/2018 Transportation at D/C:Friend Discharge Delay Reason: Follow-Up Date:03/07/2018 Discharge Slot: Final Diagnosis: Placement Information Patient Contact Information Contact Name:ARUN Relationship:Rachel Address: Work Phone: City: [facility] Phone: State/[employer] Code: Email: Financial Information Financial Class:Self-Pay Primary Plan Desc:SELF PAY Primary Plan Number: Secondary Plan Desc: Secondary Plan Number: Assessment Information LACE LACE Length of stay for Answers: 2 days current admission Acuity / Level of Answers: Yes Care: Did the patient have an inpatient admission? Comorbidities - select Answers: Any tumor (including all that apply lymphoma or leukemia) # of Emergency department Answers: 1-2 visits in the last 6 months Score: 8 Date Signed: 03/04/2018 09:56 AM Electronically Signed By:Carmelita Adames RN [facility] Progress Note CM Note CM Note Notes: CM reviewed Pt's chart for D/C planning. Pt is a 48 y/o male who presented to the ED with c/o 6 weeks of confusion, lightheadedness, falls and headaches. Last few weeks losing weight. Intermittent nausea and vommiting last 3 weeks. Pt diagnosed with multiple tumors on head CT. Mass seen on lung and lesions in lymph nodes. Metastatic disease most likely. He is experiencing some symptom relief porobably due to steroids being taken now that he is here. Pt 's primary language is Frisian; he speaks Finnish fluently, but agreed to an interpretor when medical findings presented. CM will follow. D/C Plan: TBD Date Signed: 03/02/2018 09:49 AM Electronically Signed By:Casi Arteaga [facility] CM Progress Note CM Note CM Note Notes: Patient seen in rounds this am. Pathology still pending. 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 Call to to request help. Patient is anxious to discharge to home so he can travel to [place] and be with family. We will need to compile his records for discharge. No needs at this time for [facility]. Plan: To dc home independently when medically cleared for discharge. Date Signed: 03/05/2018 03:29 PM Electronically Signed By:Carmelita Adames RN [facility] Progress Note CM Note CM Note Notes: Patient discharge planning continues. He is planning on flying to [place] when he gets discharged and has a Frisian speaking friend to accompany him. He will need a copy of his medical records as well as CD images from testing. No current needs identified from CM perspective. CM to follow. Plan: To dc indenpendently with community support. Date Signed: 03/06/2018 09:46 AM Electronically Signed By:Carmelita Adames RN [facility] CM Progress Note CM Note CM Note Notes: Patient seen during interdisciplinary rounds and plan of care reviewed. He will remain on IV steroids today but tapering dose and be switched to oral steroids tomorrow with likely discharge. Records being compiled as he intends to travel home to [facility] and seek treatment there. No other needs identified. Plan: Dc independently. Date Signed: 03/06/2018 01:23 PM Electronically Signed By:Carmelita Adames RN LACE LACE Length of stay for Answers: 4-6 days current admission Acuity / Level of Answers: Yes Care: Did the patient have an inpatient admission? Comorbidities - select Answers: Any tumor (including all that apply lymphoma or leukemia) # of Emergency department Answers: 1-2 visits in the last 6 months Score: 10 Date Signed: 03/07/2018 12:23 PM Electronically Signed By:Carmelita Adames RN [facility] CM Progress Note CM Note CM Note Notes: medically cleeared for discharge to home. No dc needs per CM. CM available should needs arise. Plan: Home with friends support. Plan to fly home to [facility]. Date Signed: 03/07/2018 12:42 PM Electronically Signed By:Carmelita Adames RN Intervention Information
--- NOTE | 2018-03-07 13:16 | ASMTCMCOM ---
CM Note CM Note Notes: medically cleeared for discharge to home. No dc needs per CM. CM available should needs arise. Plan: Home with friends support. Plan to fly home to [facility]. Date Signed: 03/07/2018 12:42 PM Electronically Signed By:Carmelita Adames RN
--- NOTE | 2018-03-07 15:58 | GDS ---
DISCHARGE DIAGNOSES: 1. Metastatic adenocarcinoma, lung primary, with innumerable central nervous system metastases. 2. Acute encephalopathy. 3. Steroid-induced hyperglycemia. 4. Leukocytosis. 5. Tachycardia. HISTORY OF PRESENT ILLNESS: A 48-year-old Macanese man with no significant past medical history pres ented to the ER with complaints of 6 weeks of progressive confusion and headaches. He has been losin g weight over the prior several weeks. He has felt lightheaded and occasionally falling, without any loss of consciousness or injury. He was having sufficient difficulties on recalling orders as a jaiden ter that he had to quit. Denies any tingling in his legs or arms. CT in the ER showed bilateral cerebral and right cerebellar masses with surrounding vasogenic edema c ausing a 0.8 cm [id number] midline shift and herniation. CONSULTATIONS: Oncology. HOSPITAL COURSE: 1. Metastatic adenocarcinoma, lung primary, with innumerable FUR BLENDER metastases. He was evaluated by On cology who recommend that he should be stabilized prior to returning to [facility]. Given that the patien t is , a nonsmoker, there is high probability that this is an actionable mutation and does not r equire whole-brain radiotherapy, but can start with TKI therapy. This would have a large impact on h is quality of life. Symptoms improved with dexamethasone, which will continue at discharge b.i.d. 2. Acute encephalopathy: Secondary to innumerable FUR BLENDER metastasis. Improved with dexamethasone. 3. Steroid-induced hyperglycemia: Glargine at night. 4. Leukocytosis secondary to steroids. DISPOSITION: Patient is stable for discharge home with his friend. They plan to fly to [facility] tomorr ow. I have provided a letter for hospital there. PHYSICAL EXAMINATION: VITAL SIGNS: Today, temperature 36.8, blood pressure 135/92, heart rate in th e 90s to one-teens, respirations 18, 92% on room air. GENERAL: Well appearing, no acute distress. HEENT: PERRLA. Moist mucous membranes CV: Regular rhythm, tachy. LUNGS: Clear. ABDOMEN: Soft, nontender, nondistended. Positive bowel sounds. : No Cooper. MUSCULOSKELETAL: 5/5 upper and low er extremity strength. NEURO: 2 through 12 intact. PSYCH: Alert and oriented, answering appropria tely. Time spent on discharge: Greater than 35 minutes spent at bedside with patient explaining medication s, followup plan with facility in [facility]. NEW MEDICATIONS: Glargine 10 units, dexamethasone 4 mg b.i.d. /[id number]/MODL
== END 2018-03-07 14:15 | disposition home or self-care (01) | DRG 987 ==
LOC: EDBD 19:46 → MERGE 20:54 → F3N 22:55 → F1N 03-03 18:04
PROVIDERS: ADMIT Internal Medicine; ATTEND Internal Medicine
PROC: 0QB53ZX Excision of Left Acetabulum, Percutaneous Approach, Diagnostic (ICD-10-PCS; principal; 2018-03-02 17:15)
DX: C79.31 Secondary malignant neoplasm of brain (principal); C79.51 Secondary malignant neoplasm of bone; C34.12 Malignant neoplasm of upper lobe, left bronchus or lung; C77.9 Secondary and unspecified malignant neoplasm of lymph node, unspecified; G93.40 Encephalopathy, unspecified; R73.9 Hyperglycemia, unspecified; T38.0X5A Adverse effect of glucocorticoids and synthetic analogues, initial encounter; G93.5 Compression of brain; G93.6 Cerebral edema; R35.8 Other polyuria; M10.9 Gout, unspecified; D72.829 Elevated white blood cell count, unspecified
CPT/HCPCS: 80305; 96374; A9585; G0480; J1100; J1650; J1815; J2250; J3010; Q9967